=== PATIENT | female | born 1960 | race Caucasian/White ===

== ENCOUNTER 2017-12-05 19:26 | Emergency (ER) | payer OTHER ==
[~2017-12-05] VITALS: Ht 170.2 cm; Wt 83.9 kg
[2017-12-05 20:17] LABS: ABSOLUTE BASOPHIL COUNT 0 /CUMM (0.0-0.2); ABSOLUTE EOSINOPHIL COUNT 0.1 /CUMM (0.0-0.7); ABSOLUTE GRANULOCYTE CT 4.5 /CUMM (1.4-6.5); ABSOLUTE LYMPH COUNT 2.8 /CUMM (1.2-3.4); ABSOLUTE MONOCYTE COUNT 0.4 /CUMM (0.10-0.60); BASOPHIL % 0.2 % (0.0-2.0); EOSINOPHIL % 1.9 % (0-5); HEMATOCRIT 39.1 % (37-47); MEAN CORPUSCULAR HGB 31.7 PG (27.0-31.0); MEAN CORPUSCULAR HGB CONC 34.9 G/DL (33.0-37.0); MEAN CORPUSCULAR VOLUME 90.8 FL (81.0-99.0); MEAN PLATELET VOLUME 7.4 FL (7.4-10.4); PLATELET COUNT 275 /CUMM (130-400); RBC DISTRIBUTION WIDTH 12.6 % (11.5-14.5); RED BLOOD CELL CT 4.31 /CUMM (4.20-5.40); WHITE BLOOD CELL COUNT 7.9 /CUMM (4.8-10.8)
--- NOTE | 2017-12-05 21:16 | RADIOLOGY REPORT ---
EXAMINATION: SHOULDER 3 VIEWS, RIGHT CLINICAL INFORMATION: Right shoulder pain. COMPARISON: None. TECHNIQUE: AP views of the right shoulder were obtained in internal and external rotation. In addition, a Y view was obtained. FINDINGS: There are no fractures or dislocations. The humeral head is seated within a well-formed glenoid. The AC joint is intact. IMPRESSION: Unremarkable right shoulder radiographs.
--- NOTE | 2017-12-06 00:31 | ED PSYCHIATRIC COMPLAINT ---
History of Present Illness General Chief Complaint: General Adult Stated Complaint: BIBA ANXIETY ATTACK, DIFF BREATHING AND BACK PAIN Source: patient, family, old records, EMS, friend Exam Limitations: no limitations Vital Signs & Intake/Output Vital Signs & Intake/Output Vital Signs Date Time Temp Pulse Resp B/P B/P Pulse O2 O2 Flow FiO2 Mean Ox Delivery Rate 12/06 0849 86 18 102/59 98 Room Air 12/06 0418 97.6 12/06 0312 97.6 12/05 2242 97.6 79 18 152/72 99 Room Air 12/05 1947 Room Air 12/05 1938 98.5 83 18 152/72 99 Room Air ED Intake and Output 12/06 0000 12/05 1200 Intake Total 1000 Output Total Balance 1000 Intake, IV 1000 Patient 185 lb Weight Weight Reported by Patient Measurement Method Allergies Coded Allergies: No Known Allergies (12/05/17) Triage Note: 57F BIBA FOR PANIC ATTACK WHILE AT WORK, 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 ARRIVES SLIGHTLY TACHYPNIC AND PURSED LIPPED DUE TO ANXIETY AND NOW REPORTS R SIDE PAIN THAT RADIATES INTO LOW BACK. STRUGGLES TO SLIDE SELF OVER TO STRETCHER. DENIES SI/HI Triage Nurses Notes Reviewed? yes Onset: Just prior to arrival Duration: minute(s):, constant, continues in ED Timing: recent history Severity: severe Associated Symptoms: anxiety, impaired concentration LMP (ages 10-50): post menopausal : No Patient currently breastfeeds: No HPI: Prior to admission patient had panic attack while lifting a case of water. She collapsed and developed epigastric sharp constant pain radiating to her right flank and shoulder. She took a Xanax but still with continued anxiety. She denies fever chills nausea vomiting diarrhea chest pain cough shortness of breath headache dysuria rash bleeding suicidal ideation homicidal ideation hallucination. (Latonia FUNEZ,Matti) Past History Travel History Traveled to [place] past 21 day No Medical History Any Pertinent Medical History? see below for history Neurological: NONE EENT: NONE Cardiovascular: hyperlipidemia Respiratory: NONE Gastrointestinal: NONE Hepatic: NONE Renal: NONE Musculoskeletal: NONE Psychiatric: anxiety Endocrine: NONE Blood Disorders: NONE Cancer(s): NONE SOCIOLOGY FACULTY MEMBER/Reproductive: NONE Surgical History Surgical History: non-contributory Psychosocial History What is your primary language Cambodian Tobacco Use: Current Daily Use Daily Tobacco Use Amount/Type: => 5 Cigarettes daily ETOH Use: denies use Family History Hx Contributory? No (Matti Lincoln MD) Review of Systems Review of Systems Constitutional: Reports: no symptoms. EENTM: Reports: no symptoms. Respiratory: Reports: no symptoms. Cardiovascular: Reports: no symptoms. GI: Reports: see HPI, abdominal pain, nausea. Genitourinary: Reports: no symptoms. Musculoskeletal: Reports: see HPI, joint pain. Skin: Reports: no symptoms. Neurological/Psychological: Reports: see HPI, anxiety, confusion, emotional problems. Hematologic/Endocrine: Reports: no symptoms. Immunologic/Allergic: Reports: no symptoms. All Other Systems: Reviewed and Negative (Matti Lincoln MD) Physical Exam Physical Exam General Appearance: well developed/nourished, alert, awake, anxious, severe distress, obese Head: atraumatic, normal appearance Eyes: Bilateral: normal appearance, PERRL, EOMI. 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 patient not suicidal (Matti Lincoln MD) Progress Differential Diagnosis: drug intoxication, drug overdose, drug withdrawal, electrolyte abnormality, hypoglycemia Plan of Care: Orders Procedure Date/time Status URINE DRUG SCREEN FOR ER ONLY 12/05 2328 Complete URINALYSIS 12/06 1951 Complete MAGNESIUM 12/06 1951 Complete LIPASE 12/06 1951 Complete COMPREHENSIVE METABOLIC PANEL 12/06 1951 Complete CBC WITHOUT DIFFERENTIAL 12/06 1951 Complete Current Medications Sig/Pascual Start time Last Medication Dose Stop Time Status Admin Oxycodone/ 1 TAB ONCE ONE 12/06 0915 UNVr Acetaminophen 12/06 0916 (Percocet) Ibuprofen 600 MG Q6P PRN 12/06 0315 AC 12/06 (Motrin) 0312 Laboratory Tests 12/06/17 0246: Urine Opiates Screen 3199.00 H, Methadone Screen 59, Barbiturate Screen < 60, Ur Phencyclidine Scrn < 6.00, Amphetamines Screen 372, U Benzodiazepines Scrn 440 H, Urine Cocaine Screen < 50, Urine Cannabis Screen < 5.00, Urine Color YEL , Urine Clarity HAZY H, Urine pH 6.0, Ur Specific [place] 1.020, Urine Protein NEG, Urine Ketones NEG, Urine Nitrite NEG, Urine Bilirubin NEG, Urine Urobilinogen 0.2, Ur Leukocyte Esterase SMALL H, Ur Microscopic SEDIMENT EXAMINED, Urine RBC 5-10 H, Urine WBC 3-5 H, Ur Epithelial Cells FEW, Urine Bacteria FEW H, Urine Hemoglobin MOD H, Urine Glucose NEG 12/05/172049: Anion Gap 8, Estimated GFR > 60, BUN/Creatinine Ratio 18.9, Glucose 100 H, Calcium 9.4, Magnesium 2.1, Total Bilirubin 0.5, AST 36, ALT 34, Alkaline Phosphatase 54, Total Protein 6.4, Albumin 4.0, Globulin 2.4, Albumin/Globulin Ratio 1.7, Lipase 16 L 12/05/172007: CBC w Diff NO MAN DIFF REQ, RBC 4.31, MCV 90.8, MCH 31.7 H, MCHC 34.9, RDW 12.6 , MPV 7.4, Gran % 57.0, Lymphocytes % 35.6, Monocytes % 5.3, Eosinophils % 1.9, Basophils % 0.2, Absolute Granulocytes 4.5, Absolute Lymphocytes 2.8, Absolute Monocytes 0.4, Absolute Eosinophils 0.1, Absolute Basophils 0 Diagnostic Imaging: Viewed by Me: Radiology Read. Discussed w/RAD: Radiology Read. Radiology Impression: no acute abnormality, no fracture, no dislocation Hand-Off Endorsed To: Choco Arreola MD Endorsed Time: 0700 Pending: consult Comments: Initially the patient declined crisis evaluation but had 2 severe anxiety attacks in the emergency department. ([place] FUNEZ,Matti) Comments: Patient really wants to go home. There is no suicidal or homicidal ideations. Patient states that she has her own psychiatrist that she will follow up with. Family is at the bedside and the agree with the plan. (Choco Arreola MD) Departure Departure Condition: Stable Clinical Impression Primary Impression: Generalized anxiety disorder with panic attacks Secondary Impressions: Muscle strain of right shoulder region Referrals: Matt FUNEZ,Marissa Park (PCP/Family) Departure Forms: Customer Survey General Discharge Information (Latonia FUNEZ,Matti) Departure Disposition: HOME OR SELF CARE Additional Instructions: Follow-up with her psychiatrist. Return if symptoms worsen or for any concerns. (Maxwell FUNEZ,Choco Ambrosio)
[2017-12-06 08:49] VITALS: BP 102/59
== END 2017-12-06 09:26 ==
LOC: ERH 19:26
PROVIDERS: Emergency Medicine
DX: S46.911A Strain of unspecified muscle, fascia and tendon at shoulder and upper arm level, right arm, initial encounter (principal); F41.1 Generalized anxiety disorder; F41.0 Panic disorder [episodic paroxysmal anxiety]; X58.XXXA Exposure to other specified factors, initial encounter; Y92.9 Unspecified place or not applicable; Y93.89 Activity, other specified
CPT/HCPCS: 73030-RT; 80307; 81001; 96374; 96375; 96376; J1885